=== PATIENT | male | born 1990 | race Caucasian/White ===

== ENCOUNTER 2018-08-06 06:53 | Emergency (ER) | payer OTHER ==
[~2018-08-06] VITALS: Ht 172.7 cm; Wt 65.8 kg
[2018-08-06 07:07] VITALS: BP 136/92
[2018-08-06] MEDS ORDERED: PRED20TA PO (07:32)
--- NOTE | 2018-08-06 07:44 | PHYS DOC ---
Past Medical History Past Medical History: No Pertinent History Past Surgical History: No Surgical History Alcohol Use: Occasionally Drug Use: None Adult General Chief Complaint Chief Complaint: SKIN RASH/ABSCESS HPI HPI Patient is a 27 year old male presenting with skin rash. He had this rash for the last couple of days he just recently stopped Augmentin he was taking that for about a week he stopped a few days ago he initially had vertigo and he had a sinus infection and then he went to urgent care they gave him Augmentin he stopped because he was feeling nauseous and not eating that well even had some diarrhea and then a few days later this rash developed. No fever now he is currently eating better no sore throat Allergies Allergies Allergies Coded Allergies Type Severity Reaction Last Updated Verified No Known Drug Allergies 06/09/15 No Physical Exam Physical Exam Constitutional: Well developed, well nourished, no acute distress, non-toxic appearance. [] HENT: Normocephalic, atraumatic, bilateral external ears normal, oropharynx moist, no oral exudates, nose normal. [] Eyes: PERRLA, EOMI, conjunctiva normal, no discharge. [] Neck: Normal range of motion, no tenderness, supple, no stridor. [] Pulmonary: Normal respiratory effort no increased work of breathing no obvious chest wall trauma Skin: There is diffuse maculopapular rash throughout the trunk and arms legs not on palms not in mouth Back: No tenderness, no CVA tenderness. [] Extremities: No tenderness, no cyanosis, no clubbing, ROM intact, no edema. [] Neurologic: Alert and oriented X 3, normal motor function, normal sensory function, no focal deficits noted. [] Psychologic: Affect normal, judgement normal, mood normal. [] Current Patient Data Vital Signs Vital Signs Date Time Temp Pulse Resp B/P (MAP) Pulse Ox O2 Delivery O2 Flow Rate FiO2 08/06/18 07:07 98.4 77 18 136/92 (107) 98 Room Air 98.4 EKG EKG [] Radiology/Procedures Radiology/Procedures [] Course & Med Decision Making Course & Med Decision Making Pertinent Labs and Imaging studies reviewed. (See chart for details) []Probably drug rash based on appearance and timing related to the antibiotic use. Recommended trial of prednisone stop Augmentin entirely they hydrated gradual return to activity reassurance was provided vital signs are reassuring patient is alert and ambulatory at home think we need any lab work at this time no evidence of Nails-Celio syndrome clinically [place] Disclaimer Dragon Disclaimer This electronic medical record was generated, in whole or in part, using a voice recognition dictation system. Departure Departure Impression: Primary Impression: Rash Disposition: 01 HOME, SELF-CARE Condition: IMPROVED Patient Instructions: Rash, Tdim-[id number] Scripts Prednisone (PREDNISONE) 20 Mg Tablet 1 TAB PO DAILY, #4 TAB Prov: TISHA GARSIA MD 08/06/18 TISHA GARSIA MD Aug 06, 2018 07:44
== END 2018-08-06 08:01 | disposition home or self-care (01) ==
LOC: ER 06:53
DX: R21 Rash and other nonspecific skin eruption (principal); R11.0 Nausea
CPT/HCPCS: 99283

== ENCOUNTER 2019-09-05 01:52 | Emergency (ER) | payer BC, OTHER ==
[~2019-09-05] VITALS: Ht 172.7 cm; Wt 65.8 kg
[~2019-09-05 01:52] MED LIST: PRED20TA PO
[2019-09-05 02:00] VITALS: BP 147/93
[2019-09-05] MEDS ORDERED: CEPH-264 PO (02:25)
--- NOTE | 2019-09-05 02:25 | PHYS DOC ---
Past Medical History Past Medical History: No Pertinent History Past Surgical History: No Surgical History Alcohol Use: Occasionally Drug Use: None Adult General Chief Complaint Chief Complaint: INSECT BITE HPI HPI Patient is a 28 year old male presents to the due to chief complaint of spider bite to his left lower thigh. Patient states that this occurred about 30 minutes prior to arrival. Patient states that previously about 5 years ago he was bitten by another spider and had a significant allergic reaction and so he came to the ED today as early as possible. Patient denies itching, fever, chills. Patient is complaining of pain at the bite site. Review of Systems Review of Systems Constitutional: Denies fever or chills [] Eyes: Denies change in visual acuity, redness, or eye pain [] HENT: Denies nasal congestion or sore throat [] Respiratory: Denies cough or shortness of breath [] Cardiovascular: No additional information not addressed in HPI [] GI: Denies abdominal pain, nausea, vomiting, bloody stools or diarrhea [] Musculoskeletal: Remainder tenderness at the bite site at the left lower thigh All other systems were reviewed and found to be within normal limits, except as documented in this note. Current Medications Current Medications Current Medications Medications (Trade) Dose Ordered Sig/Regina Start Time Stop Time Status Last Admin Dose Admin Diphenhydramine HCl (Benadryl) 25 mg 1X ONCE 09/05/19 02:30 09/05/19 02:31 UNV 09/05/19 02:24 25 MG Allergies Allergies Allergies Coded Allergies Type Severity Reaction Last Updated Verified oseltamivir Allergy Mild Rash 09/05/19 Yes Physical Exam Physical Exam Constitutional: Well developed, well nourished, no acute distress, non-toxic appearance. [] HENT: Normocephalic, atraumatic Eyes: PERRLA, EOMI Neck: Normal range of motion, no tenderness, supple, no stridor. [] Cardiovascular:Heart rate regular rhythm, no murmur [] Lungs & Thorax: Bilateral breath sounds clear to auscultation [] Abdomen: Bowel sounds normal, soft, no tenderness Skin: Small area of erythema and a bite site. No surrounding erythema, warmth or tenderness. Back: No tenderness, no CVA tenderness. [] Extremities: No tenderness, no cyanosis, no clubbing, ROM intact, no edema. [] Neurologic: Alert and oriented X 3 Current Patient Data Vital Signs Vital Signs Date Time Temp Pulse Resp B/P (MAP) Pulse Ox O2 Delivery O2 Flow Rate FiO2 09/05/19 02:00 97.9 73 16 147/93 (111) 97 Room Air 97.9 EKG EKG [] Radiology/Procedures Radiology/Procedures [] Course & Med Decision Making Course & Med Decision Making Ordered Benadryl 20 from an oral tablet. Patient is given a prescription for Keflex in case the bedside says further erythema. Patient is instructed to only use the prescription if absolutely necessary. Patient instructed to follow up with PCP in one day. Discussed plan of care with patient. Patient is instructed to follow up with PCP in one to 2 days. Appropriate discharge instructions given to patient to return to the ED or to seek immediate medical evaluation. Dragon Disclaimer Dragon Disclaimer This electronic medical record was generated, in whole or in part, using a voice recognition dictation system. Departure Departure Impression: Primary Impression: Spider bite Disposition: HOME, SELF-CARE Condition: STABLE Referrals: NO PCP (PCP) Patient Instructions: Spider Bite Additional Instructions: Appropriate discharge instructions given. To patient to return to the ED or to seek immediate medical evaluation. Patient instructed to return to the symptoms worsen or if any concerns. Patient follow-up with PCP in one to 2 days. Scripts Cephalexin (KEFLEX) 500 Mg Capsule 500 MG PO QID for 7 Days, #28 CAP Prov: ROLAN RAMIREZ DO 09/05/19 ROLAN RAMIREZ DO Sep 05, 2019 02:25
[2019-09-05] MEDS ORDERED: diphenhydrAMINE HCL 25 MG CAPSULE PO ONE (02:30)
== END 2019-09-05 02:40 | disposition home or self-care (01) ==
LOC: ER 01:52
DX: S70.362A Insect bite (nonvenomous), left thigh, initial encounter (principal); Z88.8 Allergy status to other drugs, medicaments and biological substances; W57.XXXA Bitten or stung by nonvenomous insect and other nonvenomous arthropods, initial encounter; Y93.89 Activity, other specified; Y92.89 Other specified places as the place of occurrence of the external cause; Y99.8 Other external cause status
CPT/HCPCS: 99283; Q0163

== ENCOUNTER 2020-11-02 21:10 | Emergency (ER) | payer BC ==
[~2020-11-02] VITALS: Ht 172.7 cm; Wt 75.0 kg
[~2020-11-02 21:10] MED LIST changes: +CEPH-264 PO
[2020-11-02] MEDS ORDERED: MORPHINE SULFATE 10 MG/ML VIAL. IM ONE (22:00)
[2020-11-02] MEDS ORDERED: DIPH,PERTUSS(ACELL),TET VAC/PF 0.5 ML SYRINGE. VAX IM ONE (23:00)
[2020-11-02] MEDS ORDERED: LIDOCAINE 1% PF 2 ML VIAL. INJ ONE (23:00)
[2020-11-02] MEDS ORDERED: cefTRIAXone IM 1 GM VIAL IM ONE (23:00)
--- NOTE | 2020-11-02 23:00 | PHYS DOC ---
Past Medical History Past Medical History: No Pertinent History Past Surgical History: No Surgical History Smoking Status: Never Smoker Alcohol Use: Occasionally Drug Use: None General Adult EDM: Chief Complaint: ANIMAL BITE HPI: HPI: Patient is a 29 year old male who presents to the ED today with multiple dog bites to the upper and lower lips as well as chin. Patient states he was trying to help his dog that has medical conditions and was seizing. He states in the process the dog bit him. He states the dog is not up-to-date with its shots because they were in the process of trying to decide what to do about its failing health. Review of Systems: Review of Systems: Constitutional: Denies fever or chills. [] HENT: Denies nasal congestion or sore throat. [] GI: Denies abdominal pain, nausea, vomiting, bloody stools or diarrhea. [] : Denies dysuria. [] Musculoskeletal: Denies back pain or joint pain. [] Integument: Reports facial dog bites Neurologic: Denies headache, focal weakness or sensory changes. [] Psychiatric: Denies depression or anxiety. [] Heart Score: Risk Factors: Risk Factors: DM, Current or recent (<one month) smoker, HTN, HLP, family history of CAD, obesity. Risk Scores: Score 0 - 3: 2.5% MACE over next 6 weeks - Discharge Home Score 4 - 6: 20.3% MACE over next 6 weeks - Admit for Clinical Observation Score 7 - 10: 72.7% MACE over next 6 weeks - Early Invasive Strategies Current Medications: Current Medications Medications (Trade) Dose Ordered Sig/Regina Start Time Stop Time Status Last Admin Dose Admin Ceftriaxone Sodium (Rocephin Im) 1 gm 1X ONCE 11/02/20 23:00 11/02/20 23:01 11/02/20 22:11 1 GM Diphtheria/ Tetanus/Acell Pertussis (ADACEL TDap SYRINGE) 0.5 ml ONCE ONCE 11/02/20 23:00 11/02/20 23:01 11/02/20 22:15 0.5 ML Lidocaine HCl (Xylocaine-Mpf 1% 2ml Vial) 2 ml 1X ONCE 11/02/20 23:00 11/02/20 23:01 11/02/20 22:11 2 ML Morphine Sulfate (Morphine Sulfate) 5 mg 1X ONCE 11/02/20 22:00 11/02/20 22:01 DC 11/02/20 21:31 5 MG Allergies: Allergies: Allergies Coded Allergies Type Severity Reaction Last Updated Verified oseltamivir Allergy Mild Rash 09/05/19 Yes Physical Exam: PE: Constitutional: Well developed, well nourished, no acute distress, non-toxic appearance. [] HENT: Normocephalic, atraumatic, bilateral external ears normal, oropharynx moist, no oral exudates, nose normal. [] Eyes: PERRLA, EOMI, conjunctiva normal, no discharge. [] Skin: Right upper lip corner region with a dog bite laceration approximately 3 cm x 0.5 cm crossing the vermilion border, right lower lip with another laceration approximately 4 x 1 x 0.5 cm crossing the vermilion border. Right chin with another laceration approximately 0.5 cm not cutting through. Back: No tenderness, no CVA tenderness. [] Extremities: No tenderness, no cyanosis, no clubbing, ROM intact, no edema. [] Neurologic: Alert and oriented X 3, normal motor function, normal sensory function, no focal deficits noted. [] Psychologic: Affect normal, judgement normal, mood normal. [] Current Patient Data: Vital Signs: Vital Signs Date Time Temp Pulse Resp B/P (MAP) Pulse Ox O2 Delivery O2 Flow Rate FiO2 11/02/20 21:31 99 11/02/20 21:15 98.1 86 18 122/66 (84) Room Air 98.1 EKG: EKG: [] Radiology/Procedures: Radiology/Procedures: [] Course & Med Decision Making: Course & Med Decision Making Pertinent Labs and Imaging studies reviewed. (See chart for details) This is a 29-year-old male patient with multiple dog bites to the chin and lips. The lip lacerations need a plastic surgeon for good cosmetic outcome. Tetanus was updated in the ED, given Sean. Spoke to , accepting physician . Dad will transport patient. [place] Disclaimer: [place] Disclaimer: This electronic medical record was generated, in whole or in part, using a voice recognition dictation system. Departure Departure Impression: Primary Impression: Dog bite of vermilion border of lower lip Qualified Codes: S01.551A - Open bite of lip, initial encounter; W54.0XXA - Bitten by dog, initial encounter Additional Impressions: Dog bite of vermilion of upper lip Qualified Codes: S01.551A - Open bite of lip, initial encounter; W54.0XXA - Bitten by dog, initial encounter Dog bite of chin Qualified Codes: S01.85XA - Open bite of other part of head, initial encounter; W54.0XXA - Bitten by dog, initial encounter Disposition: 05 DC/TRF OTHER TYPE INSTITUTI Condition: STABLE Referrals: NO PCP (PCP) BLADIMIR MARIA APRN Nov 02, 2020 23:00
[2020-11-02 23:13] VITALS: BP 120/75
== END 2020-11-02 23:15 | disposition short-term general hospital (02) ==
LOC: ER 21:10
DX: S01.85XA Open bite of other part of head, initial encounter (principal); S01.551A Open bite of lip, initial encounter; Z88.8 Allergy status to other drugs, medicaments and biological substances; W54.0XXA Bitten by dog, initial encounter; Y93.89 Activity, other specified; Y92.89 Other specified places as the place of occurrence of the external cause; Y99.8 Other external cause status
CPT/HCPCS: 90471; 90715; 96372; 99285; J0696; J2270; J3490